=== PATIENT | male | born 1955 | race Caucasian/White ===

== ENCOUNTER 2021-06-26 11:25 | Emergency (ER) | payer MEDICARE, SELFPAY ==
--- NOTE | 2021-06-26 11:26 | ED.SKABFB ---
HPI - Skin/Abscess/Foreign Bdy General Chief complaint: Skin/Abscess/Foreign Body Stated complaint: rash Time Seen by Provider: 06/26/21 11:27 Source: patient and RN notes reviewed History of Present Illness HPI narrative: Patient is a 65-year-old male who presents the urgent care with complaints of sores on the back and under the right arm. Patient states that they have been there for approximately 10 days and he has been putting diclofenac cream on the areas. Patient denies of any fever, chills, nausea, vomiting. No other acute complaints. No acute distress noted. Patient aware of the plan of care. Some parts of this dictation were generated by voice recognition software and may contain typographical and/or grammatical inaccuracies. Related Data Home Medications Medication Instructions Recorded Confirmed Eliquis 06/26/21 Trulicity 06/26/21 metformin 06/26/21 metoprolol succinate 06/26/21 pravastatin 06/26/21 Allergies Allergy/AdvReac Type Severity Reaction Status Date / Time alteplase Allergy Unknown Verified 06/26/21 11:42 cefuroxime [From Ceftin] Allergy Unknown Verified 06/26/21 11:42 Review of Systems Review of Systems: CONSTITUTIONAL: Denies fever, chills, or sweats. EYES: Denies visual changes, redness, or discharge. ENT: Denies rhinorrhea, congestion, sore throat, or otalgia. CARDIOVASCULAR: Denies chest pain, palpitations, or edema. RESPIRATORY: Denies cough or dyspnea. GASTROINTESTINAL: Denies abdominal pain, nausea, vomiting, or diarrhea. GENITOURINARY: Denies dysuria or hematuria. SKIN: Reports of painful sores on the back and under the right arm MUSCULOSKELETAL: Denies back pain, joint pain, or myalgia. NEUROLOGIC: Denies headache, numbness, or weakness. All other systems reviewed are negative, except as documented in HPI. PMFSH Comments At the time of my signature, I reviewed and agree with the nursing past medical, surgical, social, and family history. There is no relevant family history pertinent to the patient complaint. Exam Narrative: GENERAL: This is a well-nourished, well-developed patient, in no apparent distress. HEAD: normocephalic, atraumatic. EYES: PERRL. Sclera clear/white. Vision is grossly intact. EARS: External ears normal NOSE: External nose normal with no obvious nasal discharge, nares without redness, no rhinorrhea. THROAT: Mucous membranes moist NECK: Neck supple CARDIOVASCULAR: Regular rate and rhythm RESPIRATORY: Clear to auscultation. Breath sounds equal bilaterally. No wheezes, rales, or rhonchi. SKIN: 3 x 7 cm of firm nonfluctuant abscess with mild surrounding erythema to the left upper back. 1 cm area of erythema with scabbed center to the right upper back. 0.5 cm (3) nonerythemic folliculitis under the right axilla NEURO: awake, alert, and oriented to person, place and time. There were no obvious focal neurologic abnormalities. EXTREMITIES: No clubbing, cyanosis, or edema. Course Vital Signs Vital signs: Vital Signs Temperature 98.5 F 06/26/21 11:36 Pulse Rate 80 06/26/21 11:36 Respiratory Rate 16 06/26/21 11:36 Blood Pressure 183/79 H 06/26/21 11:36 Pulse Oximetry 100 06/26/21 11:36 Temperature 98.5 F 06/26/21 11:36 Pulse Rate 80 06/26/21 11:36 Respiratory Rate 16 06/26/21 11:36 Blood Pressure 183/79 H 06/26/21 11:36 Pulse Oximetry 100 06/26/21 11:36 Reviewed-patient is informed that they may have pre-hypertension or hypertension based on a blood pressure reading in the department. I recommend the patient call the primary care provider listed on their discharge instructions or a physician of their choice this week to arrange follow-up for further evaluation of possible pre-hypertension or hypertension. MDM - Skin/Abscess/Foreign Bdy MDM Narrative Medical decision making narrative: Advised the patient to complete the oral antibiotic regimen as prescribed. Use the cream to the affected areas as directed. Make sure to
[2021-06-26 11:36] VITALS: BP 183/79; PULSE 80; RESP 16; TEMP 36.9; O2SAT 100
== END 2021-06-26 11:52 | disposition home or self-care (01) ==
PROVIDERS: Emergency Provider Nurse Practitioner Family
DX: L73.9 Follicular disorder, unspecified (principal); L02.212 Cutaneous abscess of back [any part, except buttock and flank]; I25.10 Atherosclerotic heart disease of native coronary artery without angina pectoris; I10 Essential (primary) hypertension; E11.9 Type 2 diabetes mellitus without complications
CPT/HCPCS: 99213; G0463